=== PATIENT | male | born 1970 | race Caucasian/White ===

== ENCOUNTER 2023-06-16 08:27 | Outpatient (CLI) | payer OTHER | END 2023-06-16 23:59 | disposition critical access hospital (66) | LOC: EMS 08:27 | DX: S89.91XA Unspecified injury of right lower leg, initial encounter (principal); W00.0XXA Fall on same level due to ice and snow, initial encounter; Y92.481 Parking lot as the place of occurrence of the external cause; Y99.0 Civilian activity done for income or pay | CPT/HCPCS: A0425; A0429 ==

== ENCOUNTER 2023-06-16 08:39 | Emergency (ER) | payer OTHER ==
--- NOTE | 2023-06-16 08:48 | ED Physician Documentation ---
PD HPI LOWER EXT INJURY - Stated complaint Stated Complaint: KNEE PX - History obtained from History obtained from: Patient, EMS - History of Present Illness PD HPI LOW EXT INJURY LOCATION: Right, Knee Type of injury: Fall (he slipped on ice/snow and fell, twisting right knee in external rotation and then under him. Pain with trying to get back up and was unable to bear full weight on knee due to pain. Did not have giving out per se.), Twist Where injury occurred: Work ([employer]) Timing - onset: How many minutes ago (30), Today Timing - details: Abrupt onset, Still present Improved by: No: Rest Worsened by: Moving Associated symptoms: Swelling (mild already). No: Weakness, Numbness Similar symptoms before: Has not had sx before Review of Systems Skin: denies: Abrasion (s), Laceration (s) Musculoskeletal: reports: Joint pain (right knee). denies: Back pain Neurologic: denies: Focal weakness, Numbness, Headache, Head injury PD PAST MEDICAL HISTORY - Allergies Allergies/Adverse Reactions: Allergies Allergy/AdvReac Type Severity Reaction Status Date / Time No Known Drug Allergies Allergy Verified 06/16/23 08:48 PD ED PE NORMAL - Vitals Vital signs reviewed: Yes - General General: Alert and oriented X 3, Well developed/nourished - HEENT HEENT: Atraumatic - Back Back: No spinal TTP - Derm Derm: Normal color, Warm and dry - Extremities Extremities: Other (degrees. Mild effusion noted. Pain on ROM. Stress testing has pain without laxity on Valgus. Cruciate testing without laxity/pain. No clicking. ) - Neuro Neuro: Alert and oriented X 3, No motor deficit, No sensory deficit, Normal speech Results - Vitals Vitals: Vital Signs - 24 hr 06/16/23 08:43 Temperature 36.8 C Heart Rate 102 H Respiratory 20 Rate Blood Pressure 161/95 H O2 Saturation 95 Oxygen O2 Source Room air - Rads (name of study) right knee xray Relevant Findings:: Prelim report reviewed (no acute bony abnormality), EMP independent interpretation of test PD Medical Decision Making - ED course Complexity details: reviewed results (xray without fracture. Exam sugests MCL strain but not apparent tars ACL/MCL. Consider meniscal injury too. Will give knee brace and crutches. Have him f/u with ortho in about 1 week. ), considered differential (fall with trist and pain of knee. Mild effusion starting. Pain with weight bearing. Got xray to eval for fracture and is normal bone structure. Stress testing pain on valgus. Not cruciate testing. No laxity. ), d/w patient Departure - Departure Disposition: 01 Home, Self Care Clinical Impression: Fall due to slipping on ice or snow, Knee strain Condition: Stable Record reviewed to determine appropriate education?: Yes Instructions: ED Meniscal Injury Knee Poss, ED Sprain Knee Follow-Up: Orthopedic Care [Provider Group] Comments: Use the knee brace when up and around. Crutches for minimal to no weightbearing for comfort. Partial weightbearing is okay for still allowing healing. Ice elevate and rest your knee often to help reduce swelling. Anti-inflammatory such as ibuprofen or naproxen 2-3 times daily. Add Tylenol every 4-6 hours as needed for pain. Minimal standing walking for the next week. Call the orthopedic office today for follow-up appointment for next week. Forms: Activity restrictions Discharge Date/Time: 06/16/23 10:43
[2023-06-16 08:52] VITALS: BP 161/95; O2SAT 95
--- NOTE | 2023-06-16 09:18 | XRAY Report ---
PROCEDURE: Knee 3V RT INDICATIONS: fall on snow/ice, twisted knee TECHNIQUE: 3 views of the knee(s) were acquired. COMPARISON: None. FINDINGS: Bones: No fractures or dislocations. Normal alignment. Joint spaces are maintained. No suspicious b chandu lesions. Soft tissues: Trace knee joint effusion. No suspicious soft tissue calcifications or masses. IMPRESSION: No acute bony abnormality. Reviewed by: Cinda Lora MD on 06/16/2023 9:[address] [facility] Approved by: Cinda Lora MD on 06/16/2023 9:17 AM PST Station ID: [id number]
[2023-06-16] MEDS: KETOROLAC 30 MG/ML VIAL IM STA (09:40)
[2023-06-16] MEDS: ACETAMINOPHEN 500 MG TABLET PO STA (09:40)
== END 2023-06-16 10:43 | disposition home or self-care (01) ==
LOC: ED 08:39
DX: S86.911A Strain of unspecified muscle(s) and tendon(s) at lower leg level, right leg, initial encounter (principal); W00.0XXA Fall on same level due to ice and snow, initial encounter; Y99.0 Civilian activity done for income or pay
CPT/HCPCS: 1040M; 73562; A9270; 96372; 99283